=== PATIENT | female | born 1960 | race Caucasian/White ===

== ENCOUNTER → 2016-07-03 | Outpatient (CLI) | payer OTHER ==
--- NOTE | 2016-07-03 13:57 | CPEKG ---
Heart Rate: 103 RR Interval: 583 P-R Interval: 148 QRSD Interval: 80 QT Interval: 320 QTC Interval: 419 P [place]: 73 QRS [place]: 76 T Wave [place]: 45 EKG Severity - OTHERWISE NORMAL ECG - EKG Impression: SINUS TACHYCARDIA Electronically Signed By: Santosh Burton 03-Jul-2016 17:00:31
== END ==
LOC: FCP 13:42
PROVIDERS: ATTEND Psychiatry & Neurology Psychiatry
DX: Z01.810 Encounter for preprocedural cardiovascular examination (principal)

== ENCOUNTER → 2016-12-19 | Outpatient (CLI) | payer OTHER ==
--- NOTE | 2016-12-19 13:22 | CPEKG ---
Heart Rate: 92 RR Interval: 652 P-R Interval: 164 QRSD Interval: 76 QT Interval: 336 QTC Interval: 416 P [place]: 72 QRS [place]: 55 T Wave [place]: 6 EKG Severity - NORMAL ECG - EKG Impression: SINUS RHYTHM Electronically Signed By: Chet Mancilla 20-Dec-2016 10:04:43
== END ==
LOC: FCP 13:08
PROVIDERS: ATTEND Psychiatry & Neurology Psychiatry
DX: Z13.6 Encounter for screening for cardiovascular disorders (principal)